=== PATIENT | male | born 1940 | race Caucasian/White ===

== ENCOUNTER 2023-07-06 15:38 | Outpatient (CLI) | payer MEDICARE ==
[~2023-07-06] VITALS: Ht 165.1 cm; Wt 67.6 kg
[2023-07-06] MEDS: albuterol 2.5 MG/3 ML nebule NEB ONE (16:21)
[2023-07-06 16:22] VITALS: PULSE 82; RESP 16; O2SAT 97
== END 2023-07-06 23:59 | disposition home or self-care (01) ==
LOC: RT 15:38
PROVIDERS: ATTEND Physician Assistant Medical
DX: J44.9 Chronic obstructive pulmonary disease, unspecified (principal)
CPT/HCPCS: 94060; 94760